=== PATIENT | male | born 1935 | race Caucasian/White ===

== ENCOUNTER 2024-06-19 11:23 | Day surgery (SDC) | payer MEDICARE ==
[2024-06-16 12:41] VITALS: BMI 34.0
[2024-06-19 12:10] VITALS: RESP 18; TEMP 97.7
[2024-06-19] MEDS: SODIUM CHLORIDE 0.9% 1,000 ML IV SCH (12:10)
[2024-06-19] MEDS: IV FLUID CONTINUATION 1,000 ML IV ONE (12:11)
[2024-06-19 12:29] LABS: African American GFR (CKD) 47 (>60 ml/min/1.73 sqM); Anion Gap 6 mmol/L; Blood Urea Nitrogen 57 mg/dL (9-20); Carbon Dioxide 28 mmol/L (22-30); Chloride 107 mmol/L (98-107); Glucose 91 mg/dL (74-99); Non-African American GFR(CKD) 40 (>60 ml/min/1.73 sqM); Potassium 4.6 mmol/L (3.5-5.1); Sodium 141 mmol/L (137-145)
[2024-06-19 12:44] LABS: Basophils % (A) 0 %; Eosinophils # (A) 0.1 k/uL (0-0.7); Eosinophils % (A) 2 %; HCT 37.5 % (39.0-53.0); HGB 12.1 gm/dL (13.0-17.5); Lymphocytes # (A) 0.8 k/uL (1.0-4.8); Lymphocytes % (A) 12 %; MCH 33.2 pg (25.0-35.0); MCHC 32.4 g/dL (31.0-37.0); MCV 102.4 fL (80.0-100.0); Macrocytosis Slight; Monocytes # (A) 0.5 k/uL (0-1.0); Monocytes % (A) 7 %; Neutrophils # (A) 5.1 k/uL (1.3-7.7); Neutrophils % (A) 77 %; Platelet Count 183 k/uL (150-450); RBC 3.66 m/uL (4.30-5.90); RDW 12.3 % (11.5-15.5); WBC 6.6 k/uL (3.8-10.6)
[2024-06-19] MEDS: LIDOCAINE 1% INJ 10MG/ML (20 ML MDV) SQ ONE (13:11)
[2024-06-19] MEDS: HEPARIN SODIUM 1,000 UN/ML (10ML VL) IV ONE (13:17)
[2024-06-19] MEDS: IOPAMIDOL-370 100ML BTL INJ ONE (13:29)
--- NOTE | 2024-06-19 15:18 | P.PCN ---
Description of Procedure: DESCRIPTION OF PROCEDURE(S): PROCEDURES PERFORMED: Selective right carotid angiography INDICATION: Severe carotid artery stenosis by ultrasound CONSENT:I have discussed the risks, benefits and alternative therapies for the above-mentioned procedure and for both sedation/analgesia as well as necessary blood product administration, if indicated, as they pertain to this patient. The patient has indicated understanding and acceptance of the risks and procedures discussed. PROCEDURE: After the risks, benefits and alternatives of the above mentioned procedure explained in detail with the patient, informed consent was obtained. Patient was taken to the catheterization lab and prepped and draped in usual fashion. 1% lidocaine was used to anesthetize the right femoral area. A 6- [place] sheath was placed in the right radial artery using modified Seldinger technique. A 5Fr FR5 catheter was advanced into the proximal innominate and selective angiography was performed. Angiography showed severe 90% stenosis of EMIL however due to contrast threshold, intervention will be staged. A TR band was placed with hemostasis achieved. The patient tolerated the procedure well. Patient was transported back to the post catheterization holding area in stable condition. Conscious Sedation: Patient was monitored under the direct supervision of vision of myself for conscious sedation using Versed and fentanyl for a total duration of 12 minutes ASCENDING AORTA: There is no significant aneurysm or stenosis. Right common carotid: patent Right internal carotid artery: 90% proximal EMIL stenosis FINAL IMPRESSION: 1. Right internal carotid artery 90% stenosis PLAN: 1. Aggressive risk factor modification per most recent ACC/AHA guidelines. 2. Staged carotid stent of right internal carotid artery
[2024-06-19 16:07] VITALS: BP 103/73; PULSE 80
--- NOTE | 2024-06-19 16:41 | IR ---
EXAMINATION TYPE: IR angio carotid cerv RT DATE OF EXAM: 06/19/2024 1:42 PM COMPARISON: Pre Operative Images if available both CT/MRI or plain film CLINICAL INDICATION: Male, 88 years old with history of carotid stenosis, 2.2min fluoro, [id number]; TECHNIQUE: IR angio carotid cerv RT, multiple fluoroscopic images provided for procedure. Total fluoroscopy time: 2.2 minutes Total submitted images to PACS: 107 DAP: 21.3 mGym2 Gycm2 uGym2 cGycm2 or equivalent. FINDINGS: IMPRESSION: 1. No evidence for intraoperative complication. 2. Please see the operative/procedural note for further details. [facility], , 06/19/2024 4:39 PM
== END 2024-06-19 16:40 | disposition home or self-care (01) ==
LOC: CATHCVL 11:23
PROVIDERS: ATTEND Internal Medicine
DX: I65.21 Occlusion and stenosis of right carotid artery (principal); I48.19 Other persistent atrial fibrillation; I13.0 Hypertensive heart and chronic kidney disease with heart failure and stage 1 through stage 4 chronic kidney disease, or unspecified chronic kidney disease; N18.9 Chronic kidney disease, unspecified; I50.32 Chronic diastolic (congestive) heart failure; E78.5 Hyperlipidemia, unspecified; I71.21 Aneurysm of the ascending aorta, without rupture; E87.5 Hyperkalemia; F03.90 Unspecified dementia, unspecified severity, without behavioral disturbance, psychotic disturbance, mood disturbance, and anxiety; I05.0 Rheumatic mitral stenosis; F17.210 Nicotine dependence, cigarettes, uncomplicated; Z79.01 Long term (current) use of anticoagulants; Z79.899 Other long term (current) drug therapy; Z95.2 Presence of prosthetic heart valve
CPT/HCPCS: 36222; 80048; 85025; C1769 ×2; C1894; J2003; J1644; Q9967